=== PATIENT | female | born 1950 | race Asian ===

== ENCOUNTER 2023-06-20 08:55 | Day surgery (SDC) | payer OTHER ==
[~2023-06-20] VITALS: Ht 152.4 cm; Wt 54.4 kg
[2023-06-20] MEDS ORDERED: MIDAZOLAM 2 MG/2 ML VIAL ONE (12:36)
[2023-06-20] MEDS ORDERED: fentaNYL citrate 0.05 MG/ML VIAL ONE (12:36)
[2023-06-20] MEDS ORDERED: LIDOCAINE 2% 100 MG/5 ML UJET TP ONE (12:36)
[2023-06-20] MEDS: MIDAZOLAM 2 MG/2 ML VIAL IVP ONE (12:55)
[2023-06-20] MEDS: fentaNYL citrate 0.05 MG/ML VIAL IVP ONE (12:56)
[2023-06-20] MEDS: LIDOCAINE 2% 100 MG/5 ML UJET TP ONE (13:15)
== END 2023-06-20 15:18 | disposition home or self-care (01) ==
LOC: MDS 08:55 → MMU 08:57 → MDS 15:18
PROVIDERS: ATTEND Internal Medicine Gastroenterology
DX: K59.00 Constipation, unspecified (principal); K64.8 Other hemorrhoids; K21.9 Gastro-esophageal reflux disease without esophagitis; K26.9 Duodenal ulcer, unspecified as acute or chronic, without hemorrhage or perforation; Z79.899 Other long term (current) drug therapy; Z98.890 Other specified postprocedural states
CPT/HCPCS: 36415; 43239; 45385; 86677; J2250; J3010